=== PATIENT | male | born 1965 | race Caucasian/White ===

== ENCOUNTER 2021-11-16 11:54 | Emergency (ER) | payer BC ==
[~2021-11-16] VITALS: Ht 185.4 cm; Wt 83.6 kg
--- NOTE | 2021-11-16 14:05 | NUR ---
PACEMAKER REP CALLED TO ER WITH REPORT THAT ONLY ONE EPISODE ALARM WAS NOTED FROM 10/11/21 WITH T-WAVE OVERSENSING. REP WOULD LIKE TO COME IN TO RE-PROGRAM THE PACEMAKER, BUT WILL NOT BE ARRIVING FOR APPROX ONE HOUR. PATIENT AND INFORMED OF THIS PLAN AND WILL BE EXPECTING PACEMAKER REP.
--- NOTE | 2021-11-16 15:20 | NUR ---
[employer] REP ARRIVED
[2021-11-16 15:57] VITALS: BP 146/78
== END 2021-11-16 16:01 | disposition home or self-care (01) ==
LOC: ER 11:57
DX: T82.897A Other specified complication of cardiac prosthetic devices, implants and grafts, initial encounter (principal); I51.9 Heart disease, unspecified; Z79.899 Other long term (current) drug therapy; Z88.8 Allergy status to other drugs, medicaments and biological substances
CPT/HCPCS: 93005; 99283